=== PATIENT | female | born 1995 | race Two or more races ===

== ENCOUNTER 2020-03-27 20:49 | Emergency (ER) | payer BC ==
[~2020-03-27] VITALS: Ht 172.7 cm; Wt 75.7 kg
[2020-03-27] MEDS ORDERED: LIDOCAINE 1%-EPI 1:100,000 20 ML VIAL ONE (21:01)
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
--- NOTE | 2020-03-27 21:11 | NUR ---
XRAY AT BEDSIDE
--- NOTE | 2020-03-27 21:18 | NUR ---
EMT AT BEDSIDE FOR WOUND CARE
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
--- NOTE | 2020-03-27 21:19 | NUR ---
ON PHONE WITH [employer]
[2020-03-27] MEDS ORDERED: LIDOCAINE 1%-EPI 1:100,000 50 ML VIAL IJ ONE (21:30)
--- NOTE | 2020-03-27 21:37 | NUR ---
[employer] CONTACTED, ON HOLD, UNABLE TO SPEAK TO [employer]LY[employer]. INSTRUCTED PATIENT TO CALL AND MAKE A CLAIM.
[2020-03-27] MEDS ORDERED: CEFTRIAXONE 1GM BAG (ER ONLY) 50 ML IV ONE (21:56)
[2020-03-27] MEDS ORDERED: CEFTRIAXONE 1GM BAG (ER ONLY) 1 GM/50 ML PIGGYBACK IV ONE (22:00)
[2020-03-27 22:26] VITALS: BP 112/71
--- NOTE | 2020-03-27 22:26 | NUR ---
Patient discharged to home in stable condition. Written and verbal after care instructions given. Patient verbalizes understanding of instruction.
--- NOTE | 2020-03-27 22:26 | NUR ---
IV removed. Catheter intact and site benign. Pressure and 4x4 applied to site. No bleeding noted.
== END 2020-03-27 22:30 | disposition home or self-care (01) ==
LOC: ER 20:51
DX: S82.891A Other fracture of right lower leg, initial encounter for closed fracture (principal); Z98.890 Other specified postprocedural states; W22.8XXA Striking against or struck by other objects, initial encounter; Y93.89 Activity, other specified; Y92.89 Other specified places as the place of occurrence of the external cause; Y99.8 Other external cause status
CPT/HCPCS: 12002; 73610; 96365; 99284; A6403; J0696; J3490 ×2